=== PATIENT | male | born 1945 | race Two or more races ===

== ENCOUNTER 2017-12-09 19:45 | Emergency (ER) | payer OTHER ==
[~2017-12-09] VITALS: Ht 182.9 cm; Wt 79.8 kg
[2017-12-09] MEDS ORDERED: GABAPENTIN600 MG (20:03)
[2017-12-09] MEDS ORDERED: CLONAZEPAM2 MG (20:04)
[2017-12-09] MEDS ORDERED: SERTRALINE HCL50 MG (20:04)
[2017-12-09] MEDS ORDERED: ENDOCET 5-3251 EACH (20:05)
== END 2017-12-09 22:25 | disposition home or self-care (01) ==
LOC: ER 19:45
DX: J06.9 Acute upper respiratory infection, unspecified (principal); J11.1 Influenza due to unidentified influenza virus with other respiratory manifestations

== ENCOUNTER 2018-02-06 10:24 | Outpatient (CLI) | payer OTHER ==
[~2018-02-06 10:24] MED LIST: CLONAZEPAM2 MG; ENDOCET 5-3251 EACH; GABAPENTIN600 MG; SERTRALINE HCL50 MG
== END 2018-02-06 10:40 | disposition home or self-care (01) ==
LOC: LAB 10:24
DX: R00.2 Palpitations (principal); I11.9 Hypertensive heart disease without heart failure; E78.2 Mixed hyperlipidemia

== ENCOUNTER 2018-02-08 11:22 | Outpatient (CLI) | payer OTHER | END 2018-02-08 13:13 | disposition home or self-care (01) | LOC: LAB 11:22 | DX: E11.9 Type 2 diabetes mellitus without complications (principal) ==

== ENCOUNTER 2018-02-10 11:47 | Outpatient (CLI) | payer OTHER | END 2018-02-10 11:51 | disposition home or self-care (01) | LOC: LAB 11:47 | DX: I11.9 Hypertensive heart disease without heart failure (principal) ==

== ENCOUNTER 2018-06-21 12:22 | Outpatient (CLI) | payer OTHER | END 2018-06-21 12:33 | disposition home or self-care (01) | LOC: RAD 12:22 | DX: M25.562 Pain in left knee (principal); M54.5 Low back pain ==

== ENCOUNTER 2019-03-04 16:30 | Emergency (ER) | payer OTHER ==
[~2019-03-04] VITALS: Ht 182.9 cm; Wt 91.2 kg
== END 2019-03-04 23:24 | disposition home or self-care (01) ==
LOC: ER 16:30
DX: K52.89 Other specified noninfective gastroenteritis and colitis (principal); E86.0 Dehydration; B34.9 Viral infection, unspecified; R10.13 Epigastric pain

== ENCOUNTER → 2019-09-04 | Emergency (ER) | payer OTHER ==
[~2019-09-04] VITALS: Ht 182.9 cm; Wt 86.2 kg
== END | disposition left against medical advice (07) ==
LOC: ER 14:40
DX: J40 Bronchitis, not specified as acute or chronic (principal)

== ENCOUNTER 2019-09-05 11:48 | Outpatient (CLI) | payer OTHER | END 2019-09-05 13:44 | disposition home or self-care (01) | LOC: RAD 11:48 | DX: J18.8 Other pneumonia, unspecified organism (principal) ==

== ENCOUNTER → 2019-10-12 | Emergency (ER) | payer OTHER ==
[~2019-10-12] VITALS: Ht 182.9 cm; Wt 86.2 kg
== END | disposition designated cancer center or children's hospital (05) ==
LOC: ER 17:02
DX: R41.82 Altered mental status, unspecified (principal); F31.89 Other bipolar disorder

== ENCOUNTER 2020-01-02 16:28 | Inpatient (IN) | payer OTHER ==
[~2020-01-02] VITALS: Ht 172.7 cm; Wt 72.6 kg
[2020-01-25] MEDS ORDERED: CLONAZEPAM0.5 MG (15:49)
== END 2020-02-13 17:04 | disposition home or self-care (01) | DRG 570 ==
LOC: ER 16:28 → MEDI 20:38 → MEDJ 02-10 13:12
PROVIDERS: Specialist; ADMIT Internal Medicine
PROC: BW20ZZZ Computerized Tomography (CT Scan) of Abdomen (ICD-10-PCS; 2020-01-02)
PROC: BN26ZZZ Computerized Tomography (CT Scan) of Mandible (ICD-10-PCS; 2020-01-02)
PROC: B246ZZZ Ultrasonography of Right and Left Heart (ICD-10-PCS; 2020-01-03)
PROC: B348ZZZ Ultrasonography of Bilateral Internal Carotid Arteries (ICD-10-PCS; 2020-01-07)
PROC: B245ZZZ Ultrasonography of Left Heart (ICD-10-PCS; 2020-01-07)
PROC: 0JB90ZZ Excision of Buttock Subcutaneous Tissue and Fascia, Open Approach (ICD-10-PCS; principal; 2020-01-09 15:00)
PROC: BB24ZZZ Computerized Tomography (CT Scan) of Bilateral Lungs (ICD-10-PCS; 2020-01-14)
PROC: 3E0F7GC Introduction of Other Therapeutic Substance into Respiratory Tract, Via Natural or Artificial Opening (ICD-10-PCS; 2020-01-17)
PROC: 0JB90ZZ Excision of Buttock Subcutaneous Tissue and Fascia, Open Approach (ICD-10-PCS; 2020-01-23)
PROC: 0JB70ZZ Excision of Back Subcutaneous Tissue and Fascia, Open Approach (ICD-10-PCS; 2020-02-06)
DX: L03.317 Cellulitis of buttock (principal); J15.6 Pneumonia due to other Gram-negative bacteria; J15.1 Pneumonia due to Pseudomonas; K12.2 Cellulitis and abscess of mouth; M62.82 Rhabdomyolysis; F31.89 Other bipolar disorder; J91.8 Pleural effusion in other conditions classified elsewhere; L02.03 Carbuncle of face; E86.0 Dehydration; F03.90 Unspecified dementia, unspecified severity, without behavioral disturbance, psychotic disturbance, mood disturbance, and anxiety; L02.02 Furuncle of face; M62.50 Muscle wasting and atrophy, not elsewhere classified, unspecified site; F43.29 Adjustment disorder with other symptoms; I65.23 Occlusion and stenosis of bilateral carotid arteries; I35.8 Other nonrheumatic aortic valve disorders; R09.02 Hypoxemia; I11.9 Hypertensive heart disease without heart failure